=== PATIENT | male | born 1970 | race Caucasian/White ===

== ENCOUNTER → 2021-11-24 | Outpatient (CLI) | payer MEDICARE, MEDICAID ==
[~2021-11-24] MED LIST: ALPR1TAB6 PO; BENZ0.5T32 PO; ESCITALOPRAM OX20 MG PO; IOHEXOL 180 MG/ML 10 ML VIAL. ONE; META-21 PO; OMEP20CA16 PO; OXYC1TAB15 PO; PREG-9 PO; ROPI0.5T4 PO; TAMS0.4C97 PO; VALB40CA2 PO; ZOLP10TA PO; methylPREDNISolone ACETATE 40 MG/ML VIAL. ONE; methylPREDNISolone ACETATE 80 MG/ML VIAL. ONE
== END | disposition home or self-care (01) ==
LOC: PNCL 08:20
PROVIDERS: ATTEND Family Medicine
DX: M50.10 Cervical disc disorder with radiculopathy, unspecified cervical region (principal); M48.02 Spinal stenosis, cervical region; G89.29 Other chronic pain; M54.12 Radiculopathy, cervical region; Z79.899 Other long term (current) drug therapy
CPT/HCPCS: 62321; J1030; J1040; Q9965

== ENCOUNTER → 2021-12-21 | Outpatient (CLI) | payer MEDICARE, MEDICAID ==
[~2021-12-21] MED LIST changes: -IOHEXOL 180 MG/ML 10 ML VIAL. ONE; -methylPREDNISolone ACETATE 40 MG/ML VIAL. ONE; -methylPREDNISolone ACETATE 80 MG/ML VIAL. ONE
--- NOTE | 2021-12-21 15:02 | KCIC ---
EXAMINATION: MRI RIGHT SHOULDER WITHOUT IV CONTRAST CLINICAL HISTORY: Right shoulder pain and RUE numbness in recent months. TECHNIQUE: Multiplanar multisequential images obtained through the shoulder without intravenous contr ast. COMPARISON: None FINDINGS: TENDONS: - Supraspinatus: Small full-thickness tear in the posterior third of the tendon extending to the junc tion of the supraspinatus and infraspinatus tendons. Moderate to marked tendinosis. - Infraspinatus: Small high-grade partial-thickness articular sided tear in the anterior third of the tendon communicating with the supraspinatus tendon tear. Moderate tendinosis. - Subscapularis: Low-grade partial-thickness articular sided tearing in the superior fibers near the insertion. - Teres Minor: Within normal limits. - Biceps Tendon: Long head biceps tendon intact and appropriately located. MUSCLES: Muscle bulk and signal intensity are within normal limits. LABRUM: Degenerative tearing in the superior and posterior inferior labrum. GLENOHUMERAL JOINT: - Joint Fluid: No joint effusion or synovitis. - Cartilage: No full-thickness chondral defect visualized. ACROMIOCLAVICULAR JOINT: Moderate hypertrophic degenerative changes. BONES/MARROW: No evidence of acute fracture or suspicious marrow replacing process. Chronic reactive changes in the greater tuberosity. IMPRESSION: Full-thickness supraspinatus tendon tear, partial thickness tearing in the infraspinatus and subscapu carmelo tendons, and rotator cuff tendinosis as described. Degenerative tearing in the superior and posterior inferior glenoid labrum. Electronically signed by: Nagi Chavez DO (12/21/2021 3:00 PM) ADELINA
== END ==
LOC: KCIC MRI 12:21
PROVIDERS: ATTEND Orthopaedic Surgery Sports Medicine
DX: S43.431A Superior glenoid labrum lesion of right shoulder, initial encounter (principal); M75.121 Complete rotator cuff tear or rupture of right shoulder, not specified as traumatic; M19.011 Primary osteoarthritis, right shoulder; X58.XXXA Exposure to other specified factors, initial encounter; Y93.89 Activity, other specified; Y92.89 Other specified places as the place of occurrence of the external cause; Y99.8 Other external cause status
CPT/HCPCS: 73221

== ENCOUNTER → 2021-12-22 | Outpatient (CLI) | payer MEDICARE, MEDICAID ==
[~2021-12-22] MED LIST changes: +IOHEXOL 180 MG/ML 10 ML VIAL. ONE; +methylPREDNISolone ACETATE 80 MG/ML VIAL. ONE
== END | disposition home or self-care (01) ==
LOC: PNCL 08:37
PROVIDERS: ATTEND Anesthesiology
DX: M50.10 Cervical disc disorder with radiculopathy, unspecified cervical region (principal); M48.02 Spinal stenosis, cervical region; M54.12 Radiculopathy, cervical region; Z79.899 Other long term (current) drug therapy
CPT/HCPCS: 62321; J1040; Q9965

== ENCOUNTER → 2022-02-23 | Outpatient (CLI) | payer MEDICARE, MEDICAID ==
[~2022-02-23] MED LIST changes: +DEXAMETHASONE PRES.FREE 10 MG/ML VIAL. ONE; -methylPREDNISolone ACETATE 80 MG/ML VIAL. ONE
--- NOTE | 2022-02-23 12:49 | PDOC ---
Progress Note - Pain Clinic Date of Service: DOS: DATE: 02/23/22 TIME: 12:44 Diagnosis: Dx: Cervical radiculopathy with cervical degenerative disease cervical spinal stenosis and cervical postlaminectomy syndrome History or Present Illness: HPI: 51-year-old male returns for follow-up status post cervical epidural steroid injection last seen December 22, 2021. Patient reports by 90% improvement in the base the neck and right upper extremity. Patient reports he did very well with increased activity at home doing household activities work activities travel with greater ease and comfort just returned [facility] a [facility] [place] [facility] and tolerated the travel very well patient reports that is now becoming more noticeable though and now has a new pain in the left upper extremity as well as the right into the shoulder and the arm not to the hand his main complaint now still is shooting pain in the hand on the right side as well as the right arm but the left side is now becoming more painful and patient is somewhat concerned patient reports no recent injury or fall or any other activity that might have exacerbated the pain that he is aware of. Patient rates pain as a 10 on scale 10 is worst least and average and is a 10 today patient grabbed sharp and shooting tingling burning and stabbing the base of neck and shoulders radiating constant in the upper extremities again worse on the right side but not present on the left as well into the mid bicep region on the left side patient reports is radiating constant can be severe and unbearable has difficulty gripping his cane as he uses it with his right hand when he is walking in his hands becoming much more fatigued and has actually dropped some items over the past week or so with the right hand. Physical Exam: VS: Blood pressure is 160/94 pulse 74 respirations 18 temperature 97.9 F weight is 203 pounds. PE: PHYSICAL EXAMINATION: GENERAL: The patient is awake, alert, oriented, appropriate, very pleasant in demeanor HEENT: Shows normocephalic, atraumatic. Extraocular movements are intact and symmetrical. Oral cavity: Mucous membranes moist and pink. Dentition is intact. NECK: Shows anterior throat supple without palpable lymphadenopathy noted. Swallow reflex symmetrical. CHEST: Shows normal on inspection. Breath sounds are clear bilaterally. HEART: Shows S1, S2 clear. No murmurs auscultated. ABDOMEN: Soft, nontender, nondistended. No palpable organomegaly is noted. BACK: Shows spine grossly in the midline. Normal-appearing cervical lordotic curvature. Cervical paraspinous muscles show symmetrical inspection, on palpation some moderate diffusely in the inferior aspect of the cervical paraspinous posterior on the right and the left also in the superior medial trapezius again more tender on the right than left but present bilaterally without specific trigger points without atrophy hypertrophy. Patient does show good rotation motion cervical spine both laterally as well extension flexion without significant limitation. There is slightly increased thoracic kyphosis, some minor flattening of the lumbar lordotic curvature. EXTREMITIES: Upper extremities show deep tendon reflexes 2+ in the biceps and triceps tendons. 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 Peripheral pulses are 2+ radial. No peripheral edema is noted bilaterally. Upper extremities are warm and dry to touch, equal in color and appearance. SKIN: Shows warm and dry, good turgor. No edema. No sores, rashes or bruising throughout. Procedure: Procedure: Options discussed with patient. Patient's old chart was reviewed as his current medication regimen updated current review of systems updated today as well. We will proceed with a cervical epidural steroid injection today with fluoroscopic guidance. Risks were discussed including but not limited to: Bleeding, infection, possibility of epidural hematoma and subsequent neurological compromise, dural puncture, headaches, spinal cord and/or nerve damage, side effects of steroid medication, and poor results regarding pain control. Patient understands and wished to proceed. Patient will return to the clinic in approximately 2 weeks for follow-up, was counseled as to return appointment, activity level, and side effect to be aware of. Medication Injected: Med Injected: Procedure is cervical epidural steroid injection at the C6-7 level, using local anesthetic under sterile prep and drape using C-arm fluoroscopic guidance under local anesthesia medications injected ; 20 mg dexamethasone +5 mL normal saline and 2 mL contrast; condition at discharge is stable patient tolerated procedure well. and had no complications Condition at Discharge: Condition at Discharge: Condition at discharge stable, patient Sujatha the procedure well and had no complications. JESUS MACKAY MD Feb 23, 2022 12:49
--- NOTE | 2022-02-23 12:50 | PDOC4 ---
Procedure Note: ICD 10 Code: ICD 10 Code: M54.12 MFive 0.30 M4 8.02 722.81 Procedure Note: Patient was consented for cervical epidural steroid injection with fluoroscopic guidance. Risks were discussed including but not limited to: Bleeding, infection, possibility of epidural hematoma and subsequent neurological com promise, dural puncture, headaches, spinal cord and/or nerve damage, side effects of steroid medication, and poor results regarding pain control. Patient understands and wished to proceed. Procedure cervical epidural steroid injection at the C6-7 level, using local anesthetic under sterile prep and drape using C-arm fluoroscopic guidance under local anesthesia medications injected ; 20 mg dexamethasone +5 mL normal saline and 2 mL contrast; condition at discharge is stable patient tolerated procedure well. and had no complications JESUS MACKAY MD Feb 23, 2022 12:50
== END | disposition home or self-care (01) ==
LOC: PNCL 11:02
PROVIDERS: ATTEND Anesthesiology
DX: M50.10 Cervical disc disorder with radiculopathy, unspecified cervical region (principal); M48.02 Spinal stenosis, cervical region; M96.1 Postlaminectomy syndrome, not elsewhere classified; Z79.899 Other long term (current) drug therapy
CPT/HCPCS: 62321; J1100; Q9965